=== PATIENT | male | born 1985 | race African-American/Black ===

== ENCOUNTER 2016-11-28 15:54 | Emergency (ER) | payer MEDICAID ==
[~2016-11-28] VITALS: Ht 175.3 cm; Wt 93.0 kg
[2016-11-28 16:54] VITALS: BP 133/79
[2016-11-28] MEDS ORDERED: Metoclopramide 10mg/2ml Inj IVP ONE (17:15)
[2016-11-28 17:52] LABS: BASOPHILS % (AUTO) 1.7 % (0.0-2.0); EOSINOPHILS % (AUTO) 2.4 % (0.0-3.0); LYMPHOCYTES % (AUTO) 38.4 % (20.0-45.0); MEAN CORPUSCULAR HEMOGLOBIN 25.8 PG (27.0-31.0); MEAN CORPUSCULAR VOLUME 81 FL (80-99); MEAN PLATELET VOLUME 6.7 FL (6.5-10.1); MONOCYTES % (AUTO) 5.2 % (1.0-10.0); NEUTROPHILS % (AUTO) 52.3 % (45.0-75.0); PLATELET COUNT 251 K/UL (150-450); RED BLOOD COUNT 5.52 M/UL (4.70-6.10); RED CELL DISTRIBUTION WIDTH 13.3 % (11.6-14.8)
[2016-11-28 18:08] LABS: ALANINE AMINOTRANSFERASE 35 U/L (3-41); ALBUMIN/GLOBULIN RATIO 1.3 (1.0-2.7); ANION GAP 15 (5-15); ASPARTATE AMINO TRANSFERASE 24 U/L (5-40); CALCIUM 9.2 mg/dL (8.6-10.2); CARBON DIOXIDE 24 mEQ/L (20-30); CHLORIDE 100 mEQ/L (98-107); CREATININE 1.1 mg/dL (0.7-1.2); GLOMERULAR FILTRATION RATE > 60 mL/min (>60); HEMOLYSIS 24; LIPASE 16 U/L (< 60); POTASSIUM 4.2 mEQ/L (3.4-4.9); SODIUM 139 mEQ/L (135-145); TOTAL PROTEIN 7.6 g/dL (6.6-8.7)
[2016-11-28 18:24] VITALS: BP 126/72
[2016-11-28 18:29] LABS: APPEARANCE,URINE CLEAR; KETONES,URINE NEGATIVE (NEGATIVE); LEUKOCYTE ESTERASE ,URINE NEGATIVE (NEGATIVE); NITRITE,URINE NEGATIVE (NEGATIVE); PH,URINE 7 (4.5-8.0); PROTEIN,URINE NEGATIVE (NEGATIVE); UROBILINOGEN,URINE 1 MG/DL (0.0-1.0)
--- NOTE | 2016-11-29 00:26 | Emergency Room Report ---
History of Present Illness General Chief Complaint: Abdominal Pain Source: Patient Present Illness HPI Patient is a 31-year-old male who presented for generalized abdominal pain and the muscle cramps. Patient had gradual onset of symptoms. Patient reported having generalized muscle aches and body aches. He denied any fever. He had not been vomiting intermittently as well as having gradual headaches. The patient said he had prior CT imaging after a head injury and had been having intermittent headaches for several weeks. Patient denies any fever he denied any hematemesis or bloody stools. Allergies: Coded Allergies: No Known Allergies (Unverified , 11/28/16) Patient History Past Medical History: see triage record Reviewed Nursing Documentation: PMH: Agreed, PSxH: Agreed Review of Systems All Other Systems: negative except mentioned in HPI Physical Exam Vital Signs Date Time Temp Pulse Resp B/P Pulse Ox O2 Delivery O2 Flow Rate FiO2 11/28/16 16:41 98.1 87 17 143/80 98 Room Air Sp02 EP Interpretation: reviewed, normal General Appearance: normal inspection, well appearing, no apparent distress, alert, GCS 15 Head: atraumatic ENT: normal ENT inspection, hearing grossly normal, normal voice Neck: normal inspection, full range of motion, supple, no bony tend Respiratory: normal inspection, lungs clear, normal breath sounds, no respiratory distress, no retraction, no wheezing Cardiovascular #1: regular rate, rhythm, no edema Gastrointestinal: normal inspection, normal bowel sounds, non tender, soft, no guarding, no hernia Genitourinary: no CVA tenderness Musculoskeletal: normal inspection, back normal, normal range of motion Neurologic: normal inspection, alert, oriented x3, responsive, paint maker III-XII nml as tested, speech normal Psychiatric: normal inspection, judgement/insight normal, mood/affect normal Skin: normal inspection, normal color, no rash Medical Decision Making Diagnostic Impression: Primary Impression: Abdominal pain ER Course Patient presented for abdominal pain. Differential diagnoses included ischemic bowel, appendicitis, perforated viscus, abdominal aortic aneurysm, inferior myocardial infarction, viral gastroenteritis Because of complexity of patient's case laboratory testing and imaging studies were ordered. The patient was given IV antiemetics and IV fluids. the patient said he felt better want to go home. The patient is given a note for work. Laboratory Tests Test 11/28/16 17:27 White Blood Count 6.0 K/UL (4.8-10.8) Red Blood Count 5.52 M/UL (4.70-6.10) Hemoglobin 14.3 G/DL (14.2-18.0) Hematocrit 44.6 % (42.0-52.0) Mean Corpuscular Volume 81 FL (80-99) Mean Corpuscular Hemoglobin 25.8 PG (27.0-31.0) L Mean Corpuscular Hemoglobin Concent 32.0 G/DL (32.0-36.0) Red Cell Distribution Width 13.3 % (11.6-14.8) Platelet Count 251 K/UL (150-450) Mean Platelet Volume 6.7 FL (6.5-10.1) Neutrophils (%) (Auto) 52.3 % (45.0-75.0) Lymphocytes (%) (Auto) 38.4 % (20.0-45.0) Monocytes (%) (Auto) 5.2 % (1.0-10.0) Eosinophils (%) (Auto) 2.4 % (0.0-3.0) Basophils (%) (Auto) 1.7 % (0.0-2.0) Urine Color Yellow Urine Appearance Clear Urine pH 7 (4.5-8.0) Urine Specific [place] 1.010 (1.005-1.035) Urine Protein Negative (NEGATIVE) Urine Glucose (UA) Negative (NEGATIVE) Urine Ketones Negative (NEGATIVE) Urine Occult Blood Negative (NEGATIVE) Urine Nitrite Negative (NEGATIVE) Urine Bilirubin Negative (NEGATIVE) Urine Urobilinogen 1 MG/DL (0.0-1.0) H Urine Leukocyte Esterase Negative (NEGATIVE) Sodium Level 139 mEQ/L (135-145) Potassium Level 4.2 mEQ/L (3.4-4.9) Chloride Level 100 mEQ/L (98-107) Carbon Dioxide Level 24 mEQ/L (20-30) Anion Gap 15 (5-15) Blood Urea Nitrogen 12 mg/dL (7-23) Creatinine 1.1 mg/dL (0.7-1.2) Estimate Glomerular Filtration Rate > 60 mL/min (>60) Glucose Level 98 mg/dL (74-106) Calcium Level 9.2 mg/dL (8.6-10.2) Total Bilirubin 0.5 mg/dL (0.0-1.2) Aspartate Amino Transferase (AST) 24 U/L (5-40) Alanine Aminotransferase (ALT) 35 U/L (3-41) Alkaline Phosphatase 83 U/L (40-129) Total Protein 7.6 g/dL (6.6-8.7) Albumin 4.3 g/dL (3.5-5.2) Globulin 3.3 g/dL Albumin/Globulin Ratio 1.3 (1.0-2.7) Lipase 16 U/L (< 60) Last Vital Signs Date Time Temp Pulse Resp B/P Pulse Ox O2 Delivery O2 Flow Rate FiO2 11/28/16 18:24 98.6 76 18 126/72 98 Room Air Status: improved Disposition: HOME, SELF-CARE Condition: Stable Referrals: BAKARI VEGA,REFERRING (PCP) Patient Instructions: Abdominal Pain, Adult Additional Instructions: Medically cleared to return to work Chuck Strong Nov 29, 2016 00:26
== END 2016-11-28 18:24 | disposition home or self-care (01) ==
LOC: EMR 18:14
DX: R10.84 Generalized abdominal pain (principal)
CPT/HCPCS: 36415; 80053; 81003; 83690; 85025; 96374; 99284; J2765

== ENCOUNTER 2017-04-16 13:03 | Emergency (ER) | payer MEDICAID ==
[~2017-04-16] VITALS: Ht 180.3 cm; Wt 87.5 kg
[2017-04-16] MEDS ORDERED: TESSALON PERLE100 MG ORAL (13:38)
[2017-04-16 13:41] VITALS: BP 151/88
--- NOTE | 2017-04-16 18:58 | Emergency Room Report ---
History of Present Illness General Chief Complaint: General Complaint Source: Patient Present Illness [facility] The patient is a 32-year-old male presenting for sore throat, subjective fevers , nasal congestion, eye redness, and dry cough for the past week. He states that symptoms have improved significantly and needs a note to return to work. He denies any known sick contacts recent travel. He denies recent fever or chills. Denies any other symptoms including N, V, neck pain/stiffness, ANDRES, SOB , abd pain Allergies: Coded Allergies: No Known Allergies (Unverified , 11/28/16) Patient History Past Medical History: see triage record Pertinent Family History: none Reviewed Nursing Documentation: PMH: Agreed, PSxH: Agreed Nursing Documentation-PMH Past Medical History: No Stated History Review of Systems All Other Systems: negative except mentioned in HPI Physical Exam Vital Signs Date Time Temp Pulse Resp B/P Pulse Ox O2 Delivery O2 Flow Rate FiO2 04/16/17 13:12 98.4 85 18 151/88 98 Room Air Sp02 EP Interpretation: reviewed, normal General Appearance: no apparent distress, alert, GCS 15, non-toxic Head: normocephalic, atraumatic Eyes: bilateral eye PERRL, bilateral eye normal inspection ENT: hearing grossly normal, no angioedema, normal voice, uvula midline, nasal congestion, pharyngeal erythema Neck: full range of motion, supple/symm/no masses Respiratory: chest non-tender, lungs clear, normal breath sounds, no wheezing, speaking full sentences Cardiovascular #1: regular rate, rhythm, no edema Gastrointestinal: normal bowel sounds, non tender, soft, non-distended, no guarding, no rebound Musculoskeletal: back normal, gait/station normal, normal range of motion, non- tender Neurologic: alert, oriented x3, responsive, motor strength/tone normal, sensory intact, speech normal Psychiatric: judgement/insight normal, memory normal, mood/affect normal, no suicidal/homicidal ideation Skin: normal color, no rash, warm/dry, well hydrated Lymphatic: no adenopathy Medical Decision Making PA Attestation Dr. Ochoa is my supervising physician. Patient management was discussed with my supervising physician Diagnostic Impression: Primary Impression: Pharyngitis, acute Qualified Codes: J02.9 - Acute pharyngitis, unspecified ER Course The patient is a 32-year-old male presenting for sore throat, subjective fevers , nasal congestion, eye redness, and dry cough Differential diagnosis include but not limited to pharyngitis, sinusitis, AOM, bronchitis, PNA Physical exam: Vitals within normal limits. Afebrile. No apparent distress HEENT exam: There is bilateral tonsillar erythema. No exudate or edema. Uvula midline. Moist mucous membranes. No cervical lymphadenopathy. Lungs are clear to auscultation bilaterally Skin is warm and dry. No rash This is most likely viral in symptoms are resolving. Patient is given a return to work note. He is given a prescription for cough medication and will FU with PMD. ER precautions given Last Vital Signs Date Time Temp Pulse Resp B/P Pulse Ox O2 Delivery O2 Flow Rate FiO2 04/16/17 13:41 98.4 18 151/88 98 Room Air 04/16/17 13:12 85 Status: improved Disposition: HOME, SELF-CARE Condition: Improved Scripts Benzonatate* (TESSALON PERLEsther*) 100 Mg Capsule 100 MG ORAL THREE TIMES A DAY, #15 PERLE Prov: MALDONADO REECE 04/16/17 Referrals: CASSI GRADY,REFERRING (PCP) Departure Forms: Return to Work Return to Work Date: Apr 16, 2017 Work Restrictions: None Return to Full Activity: Apr 16, 2017 Patient Instructions: Pharyngitis Additional Instructions: I discussed my findings with the patient. All questions and concerns have been answered. Treatment and medication compliance have been addressed. I advised the patient that they need to follow up with PMD in 3-5 days. Return to ED if pain remains or worsens, cough worsens or remains, you notice blood in your sputum, you notice wheezing, you experience a fever, or if needed for any reason. Patient verbalized understanding of discharge instructions. MALDONADO REECE Apr 16, 2017 18:58
== END 2017-04-16 13:41 | disposition home or self-care (01) ==
LOC: EMR 13:30
DX: J02.9 Acute pharyngitis, unspecified (principal); R05 Cough
CPT/HCPCS: 99284

== ENCOUNTER 2017-06-28 23:19 | Emergency (ER) | payer MEDICAID ==
[~2017-06-28] VITALS: Ht 177.8 cm; Wt 83.5 kg
[~2017-06-28 23:19] MED LIST: TESSALON PERLE100 MG ORAL
[2017-06-28 23:30] VITALS: BP 136/87
--- NOTE | 2017-06-28 23:51 | Emergency Room Report ---
History of Present Illness General Chief Complaint: Upper Respiratory Illness Source: Patient Present Illness HPI Patient presents with upper respiratory symptoms and sore throat. He also has headache and fullness in the sinuses. The also has a cough. His coworker is sick. He has some chest pain with coughing 10, pleuritic, somewhat sharp and aching, not radiating. No NVD, dysuria, rashes. 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 Reviewed Nursing Documentation: PMH: Agreed, PSxH: Agreed Nursing Documentation-PMH Past Medical History: No Stated History Review of Systems All Other Systems: negative except mentioned in HPI Physical Exam Vital Signs Date Time Temp Pulse Resp B/P Pulse Ox O2 Delivery O2 Flow Rate FiO2 06/28/17 23:22 97.9 98 16 136/87 98 Room Air Sp02 EP Interpretation: reviewed, normal General Appearance: well appearing, no apparent distress Head: normocephalic, atraumatic Eyes: bilateral eye normal inspection ENT: tonsillar swelling, pharyngeal erythema Neck: full range of motion, supple Respiratory: lungs clear, normal breath sounds, no respiratory distress, speaking full sentences Cardiovascular #1: regular rate, rhythm Cardiovascular #2: 2+ radial (R) Gastrointestinal: normal inspection Musculoskeletal: digits/nails normal, gait/station normal, normal range of motion Neurologic: alert, oriented x3, normal gait, grossly normal Psychiatric: mood/affect normal Skin: no rash Medical Decision Making Diagnostic Impression: Primary Impression: Upper respiratory infection Qualified Codes: J06.9 - Acute upper respiratory infection, unspecified ER Course Patient with URI, sinus pain and sore throat. Ddx: strep, viral, sinusitis. No wheezing. Overall sy suggestive of viral process with some sinus congestion. Will treat symptoms. Exam against pneumonia. Patient stable for outpatient observation and treatment. Last Vital Signs Date Time Temp Pulse Resp B/P Pulse Ox O2 Delivery O2 Flow Rate FiO2 06/29/17 00:06 97.9 16 136/87 98 Room Air 06/28/17 23:30 98 Status: improved Disposition: HOME, SELF-CARE Condition: Improved Scripts Ibuprofen* (MOTRIN*) 600 Mg Tablet 600 MG ORAL Q6H Y for For Pain, #16 TAB Prov: Jay Talley M.D. 06/28/17 Chlorpheniramine Maleate (CHLOR-TRIMETON) 4 Mg Tablet 4 MG PO Q6HR Y for congestion, #10 TAB Prov: Jay Talley M.D. 06/28/17 Codeine/Promethazine Hcl* (PROMETHAZINE-CODEINE SYRUP*) 118 Ml Syrup 5 ML ORAL Q6H Y for For Cough, #60 ML 0 Refills Prov: Jay Talley M.D. 06/28/17 Jay Talley M.D. Jun 28, 2017 23:51
[2017-06-28] MEDS ORDERED: PROMETHAZINE-C118 M1 ORAL (23:54)
[2017-06-28] MEDS ORDERED: IBUPROFEN600 MG ORAL (23:54)
[2017-06-28] MEDS ORDERED: CHLOR-TRIMETON4 MG PO (23:54)
[2017-06-29 00:06] VITALS: BP 136/87
== END 2017-06-29 00:06 | disposition home or self-care (01) ==
LOC: EMR 23:48
DX: J06.9 Acute upper respiratory infection, unspecified (principal); F17.200 Nicotine dependence, unspecified, uncomplicated; R51 Headache
CPT/HCPCS: 99284

== ENCOUNTER 2017-10-22 20:23 | Emergency (ER) | payer MEDICAID ==
[~2017-10-22] VITALS: Ht 175.3 cm; Wt 83.9 kg
[~2017-10-22 20:23] MED LIST changes: +CHLOR-TRIMETON4 MG PO; +IBUPROFEN600 MG ORAL; +PROMETHAZINE-C118 M1 ORAL
[2017-10-22] MEDS ORDERED: NKM (20:34)
[2017-10-22] MEDS ORDERED: IBUPROFEN800 MG ORAL (20:48)
[2017-10-22 20:50] VITALS: BP 137/83
[2017-10-22 20:53] VITALS: BP 137/83
--- NOTE | 2017-11-15 14:26 | Emergency Room Report ---
History of Present Illness General Chief Complaint: Upper Respiratory Illness Source: Patient Present Illness HPI 32-year-old male with 2-3 days of upper respiratory symptoms including cough, headache, sore throat. Denies fever or chills. Denies chest pain or shortness of breath. Denies asthma or COPD or other medical problems. Has not taken any home medications. Allergies: Coded Allergies: No Known Allergies (Unverified , 11/28/16) Patient History Past Medical History: none Past Surgical History: none Pertinent Family History: none Social History: Denies: smoking, alcohol use, drug use Immunizations: UTD Reviewed Nursing Documentation: PMH: Agreed, PSxH: Agreed Nursing Documentation-PMH Past Medical History: No Stated History Review of Systems All Other Systems: negative except mentioned in HPI Physical Exam Vital Signs Date Time Temp Pulse Resp B/P (MAP) Pulse Ox O2 Delivery O2 Flow Rate FiO2 10/22/17 20:30 97.9 83 16 135/93 100 10/22/17 20:50 Room Air Sp02 EP Interpretation: reviewed, normal General Appearance: normal inspection, well appearing, no apparent distress, alert, GCS 15, non-toxic Head: normocephalic, atraumatic Eyes: bilateral eye PERRL, bilateral eye EOMI ENT: normal ENT inspection, hearing grossly normal, normal pharynx, no angioedema, normal voice, TMs + canals normal, uvula midline, moist mucus membranes Neck: normal inspection, full range of motion, supple, thyroid normal, no meningismus, no bony tend Respiratory: normal inspection, lungs clear, normal breath sounds, no rhonchi, no respiratory distress, no retraction, no accessory muscle use, no wheezing, speaking full sentences Cardiovascular #1: regular rate, rhythm, no edema, no JVD, normal capillary refill Gastrointestinal: normal inspection, normal bowel sounds, non tender, soft, no mass, no peritonitis, non-distended, no guarding, no hernia, no pulsatile mass Genitourinary: no CVA tenderness Musculoskeletal: normal inspection, back normal, normal range of motion, no calf tenderness, pelvis stable, Niraj's Sign negative Neurologic: normal inspection, alert, oriented x3, responsive, 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 No sign of acute bacterial infection on exam. Not septic appearing. Very well-appearing. Recommended ibuprofen and supportive treatment as needed Alise course: Patient has remained stable during ED stay. Disposition: Patient is to be discharged to home. Prescriptions given are ibuprofen Patient is instructed to follow up with their primary care doctor within 5 days. Strict return precautions discussed with patient such as fever, chills, worsening/severe pain, nausea, vomiting, which may indicate severe illness. Patient verbalizes understanding and agrees with plan. Please note that this Emergency Department Report was dictated using [employer] care marketing specialist technology software, occasionally this can lead to erroneous entry secondary to interpretation by the dictation equipment Last Vital Signs Date Time Temp Pulse Resp B/P (MAP) Pulse Ox O2 Delivery O2 Flow Rate FiO2 10/22/17 20:53 82 18 137/83 99 10/22/17 20:51 Room Air 10/22/17 20:30 97.9 Status: improved Disposition: HOME, SELF-CARE Condition: Improved Scripts Ibuprofen* (MOTRIN*) 800 Mg Tablet 800 MG ORAL THREE TIMES A DAY for 7 Days, #30 TAB 0 Refills Prov: JUSTINO RAZO M.D. 10/22/17 Referrals: [facility],REFERRING (PCP) Patient Instructions: Upper Respiratory Infection, Adult Additional Instructions: - use neti pot in shower to clear secretions from nose - Take ibuprofen up to 3x a day for sore throat - Use throat lozenges [place] for comfort - Sleep, drink lots of fluids JUSTINO RAZO M.D. Nov 15, 2017 14:26
== END 2017-10-22 21:00 | disposition home or self-care (01) ==
LOC: EMR 20:57
DX: J06.9 Acute upper respiratory infection, unspecified (principal)
CPT/HCPCS: 99283

== ENCOUNTER 2017-10-26 19:04 | Emergency (ER) | payer MEDICAID ==
[~2017-10-26] VITALS: Ht 175.3 cm; Wt 83.9 kg
[~2017-10-26 19:04] MED LIST changes: +IBUPROFEN800 MG ORAL; +NKM
[2017-10-26 20:28] VITALS: BP 146/88
[2017-10-26] MEDS ORDERED: NORCO 5-325 TA1 EAC1 ORAL (20:28)
[2017-10-26 20:33] VITALS: BP 146/88
--- NOTE | 2017-10-26 21:24 | Emergency Room Report ---
History of Present Illness General Chief Complaint: Pain Source: Patient Present Illness HPI The patient is a 32-year-old male presenting for right knee pain. He states that he had a right knee patellar tendon rupture years prior and had surgical fixation. He denies any complications from this. He states that he was able to walk normally and then the knee well there for 3 days prior when he felt pain to the right knee. He states that he has been dancing recently but denies any known injury to the knee. Pain is an 8/10 dull ache and does not radiate. Worse with movement and touch. He states that he feels like his right knee locks up when he bends it now. He denies any other symptoms including fever, chills, calf Pain, shortness of breath Allergies: Coded Allergies: No Known Allergies (Unverified , 11/28/16) Patient History Past Medical History: see triage record Pertinent Family History: none Reviewed Nursing Documentation: PMH: Agreed, PSxH: Agreed Review of Systems All Other Systems: negative except mentioned in HPI Physical Exam Vital Signs Date Time Temp Pulse Resp B/P (MAP) Pulse Ox O2 Delivery O2 Flow Rate FiO2 10/26/17 19:10 98.1 91 18 146/88 95 Room Air Sp02 EP Interpretation: reviewed, normal General Appearance: no apparent distress, alert, GCS 15, non-toxic Head: normocephalic, atraumatic Eyes: bilateral eye normal inspection, bilateral eye PERRL ENT: hearing grossly normal, normal pharynx, no angioedema, normal voice Musculoskeletal: back normal, gait/station normal, decreased range of motion - R knee, other - R knee surgical scar, tender - R anterior knee Neurologic: alert, oriented x3, responsive, motor strength/tone normal, sensory intact, speech normal Psychiatric: judgement/insight normal, memory normal, mood/affect normal, no suicidal/homicidal ideation Skin: normal color, no rash, warm/dry, well hydrated Medical Decision Making PA Attestation Dr. Strong is my supervising physician. Patient management was discussed with my supervising physician Diagnostic Impression: Primary Impression: Rupture patellar tendon Qualified Codes: S86.811A - Strain of other muscle(s) and tendon(s) at lower leg level, right leg, initial encounter ER Course The patient is a 32-year-old male presenting for right knee pain. Ddx considered include but not limited to sprain/strain, gout, tendon rupture, cellulitis, septic joint, fracture, contusion PE: Afebrile. NAD Right knee: There is a midline surgical scar. No erythema. Skin warm and dry. Unable to flex. Tender to palpation over anterior aspect. No laxity. Right knee x-ray shows high riding patella. The patient has a right knee immobilizer on already. He is given crutches and will followup with his orthopedic surgeon as soon as possible. He is discharged home with pain medication Other X-Ray Diagnostic Results Other X-Ray Diagnostic Results : X-Ray ordered: R knee # of Views/Limited Vs Complete: 3 View Indication: Pain EP Interpretation: Yes PA Xray: Interpretation reviewed, by supervising MD, and agrees with findings. Interpretation: no dislocation, no soft tissue swelling, no fractures, nonspecific bowel gas, other - high riding patella Impression: Other - high riding patella Electronically Signed by: Arnel Reece PA-C Last Vital Signs Date Time Temp Pulse Resp B/P (MAP) Pulse Ox O2 Delivery O2 Flow Rate FiO2 10/26/17 20:33 98.1 91 18 146/88 95 Room Air Status: improved Disposition: HOME, SELF-CARE Condition: Improved Scripts Hydrocodone Bit/Acetaminophen 5-325* (NORCO 5-325 TABLET*) 1 Each Tablet 1 TAB ORAL Q6HR Y for For Pain, #12 TAB Prov: ARNEL REECE 10/26/17 Patient Instructions: Knee Pain Additional Instructions: I discussed my findings with the patient. All questions and concerns have been answered. Treatment and medication compliance have been addressed. Return to ED if pain remains or worsens, numbness or tingling occurs, new rash is noticed, fever is noticed, or if needed for any reason. Patient verbalized understanding of discharge instructions. Please followup with your orthopedic surgeon as soon as possible ARNEL REECE Oct 26, 2017 21:24
--- NOTE | 2017-10-27 11:57 | Diagnostic Imaging Report ---
Indication: Pain. Postop 3 weeks ago Technique: XRAY Knee 3v R Comparison: None Findings: Leg is held in extension on lateral view. The patella is high in location. Soft tissue prominence anterior to the knee There is no acute fracture or dislocation. No radiopaque foreign body seen. There is no large suprapatellar joint effusion. Impression: Abnormal high location of the patella with soft tissue prominence anterior to the knee. These findings are concerning for patellar tendon rupture. No acute fracture. This corresponds with the primary impression of the treating ER physician documented in the electronic medical record.
== END 2017-10-26 20:33 | disposition home or self-care (01) ==
LOC: EMR 19:43
DX: S76.111A Strain of right quadriceps muscle, fascia and tendon, initial encounter (principal); X58.XXXA Exposure to other specified factors, initial encounter; Y92.9 Unspecified place or not applicable; Z98.890 Other specified postprocedural states
CPT/HCPCS: 99283

== ENCOUNTER 2018-08-25 15:13 | Emergency (ER) | payer MEDICAID ==
[~2018-08-25] VITALS: Ht 177.8 cm; Wt 86.2 kg
[~2018-08-25 15:13] MED LIST changes: +NORCO 5-325 TA1 EAC1 ORAL
[2018-08-25 15:19] VITALS: BP 120/91
--- NOTE | 2018-08-25 16:28 | Emergency Room Report ---
History of Present Illness General Chief Complaint: General Complaint Source: Patient, Medical Record Present Illness HPI 33-year-old male presents to the emergency department with multiple complaints. He reports 8/10 in severity right wrist pain 2 weeks, right knee pain times one and a half weeks and sore throat 1 week. Patient denies appreciable trauma or fall he denies fevers, chills, cough, as neck pain or stiffness or other URI symptoms. 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 He reports paresthesia intermittently in the lateral aspect of the right 5th digit. He denies loss of sensation or gross motor movements of the extremities, incontinence of bowel or bladder. Denies CP, Palpitations, LOC, AMS , dizziness, Changes in Vision, weakness or a sudden severe headache. Pt reports something "hanging" off of his throat and causing him to gag every now and then. Denies neck pain or stiffness, denies fevers or difficulty swallowing. Allergies: Coded Allergies: No Known Allergies (Unverified , 11/28/16) Patient History Past Medical History: see triage record Past Surgical History: none Pertinent Family History: none Reviewed Nursing Documentation: PMH: Agreed; PSxH: Agreed Nursing Documentation-PMH Past Medical History: No History, Except For Hx Cardiac Problems: No - RT KNEE SURGERY 2009 Review of Systems All Other Systems: negative except mentioned in HPI Physical Exam Vital Signs Date Time Temp Pulse Resp B/P (MAP) Pulse Ox O2 Delivery O2 Flow Rate FiO2 08/25/18 15:17 98.4 85 18 120/91 97 Room Air 98.4 Sp02 EP Interpretation: reviewed, normal General Appearance: no apparent distress, alert, GCS 15, non-toxic Head: normocephalic, atraumatic Eyes: bilateral eye normal inspection, bilateral eye PERRL ENT: hearing grossly normal, normal voice, TMs + canals normal, uvula midline - uvula is very elongated and sits on posterior tongue. , other - no evidence of bacterial infection of the throat, no evidence of impending airway compromise. uvula is very elongated and sits on posterior tongue. Neck: full range of motion, no meningismus, no bony tend Respiratory: lungs clear, normal breath sounds, speaking full sentences Cardiovascular #1: regular rate, rhythm, normal capillary refill Musculoskeletal: back normal, gait/station normal, normal range of motion, non- tender, tender - anterior right knee, no increased laxity. surgical scar present mild swelling noted. TTP to the lateral-volar aspect of the right wrist , positive tinnel's sign negative phalen's. NVI Neurologic: alert, oriented x3, responsive, motor strength/tone normal, sensory intact, normal gait, speech normal, grossly normal Psychiatric: judgement/insight normal Skin: normal color, no rash, warm/dry, well hydrated Medical Decision Making PA Attestation Dr. Madrid is my supervising Physician whom patient management has been discussed with. Diagnostic Impression: Primary Impression: Right wrist sprain Qualified Codes: S63.501A - Unspecified sprain of right wrist, initial encounter Additional Impression: Knee pain, right Qualified Codes: M25.561 - Pain in right knee ER Course 33-year-old male presents to the emergency department with multiple complaints. He reports 8/10 in severity right wrist pain 2 weeks, right knee pain times one and a half weeks and sore throat 1 week. Patient denies appreciable trauma or fall he denies fevers, chills, cough, as neck pain or stiffness or other URI symptoms. 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 He reports paresthesia intermittently in the lateral aspect of the right 5th digit. He denies loss of sensation or gross motor movements of the extremities, incontinence of bowel or bladder. Denies CP, Palpitations, LOC, AMS , dizziness, Changes in Vision, weakness or a sudden severe headache. Pt reports something "hanging" off of his throat and causing him to gag every now and then. Denies neck pain or stiffness, denies fevers or difficulty swallowing. Ddx considered but are not limited to Fracture, dislocation, contusion, Sprain/ Strain/Spasm, pharyngitis, strep, CREATIVE ASSISTANT, ludwigs angina, URI Vital signs: are WNL, pt. is afebrile H&PE are most consistent with musculoskeletal injury will perform imaging to r/ o fractures/dislocations. no evidence of bacterial infection of the throat, no evidence of impending airway compromise. uvula is very elongated and sits on posterior tongue. Pt. is not in acute distress, non-toxic in appearance. ORDERS: - X-rays of the right knee and wrist - negative for fx, Dislocation, or significant soft tissue injury, per preliminary read in ED, and signed by HARRY Milan, my supervising physician has reviewed, and agrees with my interpretation. ED INTERVENTIONS: - Motrin 600mg PO - right wrist Colles Splint applied by delivery tech. Pt. remains neurovascularly intact. -Marvin wrap applied to the right knee by delivery tech. Pt. remains neurovascularly intact. DISCHARGE: At this time pt. is stable for d/c to home. Will provide printed patient care instructions, and any necessary prescriptions. Care plan and follow up instructions have been discussed with the patient prior to discharge. Other X-Ray Diagnostic Results Other X-Ray Diagnostic Results #1: X-Ray ordered: Right wrist # of Views/Limited Vs Complete: 3 View Indication: Pain EP Interpretation: Yes PA Xray: Interpretation reviewed, by supervising MD, and agrees with findings. Interpretation: no dislocation, no soft tissue swelling, no fractures Impression: No acute disease Electronically Signed by: Beba Milan PA-C Other X-Ray Diagnostic Results #2: X-Ray ordered: right knee # of Views/Limited Vs Complete: 3 View Indication: Pain EP Interpretation: Yes PA Xray: Interpretation reviewed, by supervising MD, and agrees with findings. Interpretation: no dislocation, no soft tissue swelling, no fractures, other - old tibial abnormality, seen on prevoius exam without change in appearance. Impression: No acute disease Last Vital Signs Date Time Temp Pulse Resp B/P (MAP) Pulse Ox O2 Delivery O2 Flow Rate FiO2 08/25/18 15:19 98.4 85 18 120/91 97 Room Air 98.4 Disposition: HOME, SELF-CARE Condition: Stable Scripts Ibuprofen* (MOTRIN*) 600 Mg Tablet 600 MG ORAL THREE TIMES A DAY, #30 TAB 0 Refills Prov: Beba Milan 08/25/18 Departure Forms: Return to Work Return to Work Date: Aug 26, 2018 Work Restrictions: No Heavy Lifting Other Restrictions: limited use of the right wrist, wear splint. Return to Full Activity: Sep 02, 2018 Patient Instructions: Carpal Tunnel Syndrome, [id number], Knee Pain, Easy-to- Read, Wrist Sprain Additional Instructions: Take medications as directed. Follow up with an [facility] in 3-5 days, even if your symptoms have resolved. If symptoms persist MRI may be required at the discretion of your PCP or Ortho Specialist. --Please review list of primary care clinics, if you do not already have a primary care provider who can give you an Orthopedic Referral. Return sooner to ED if new symptoms occur, or current symptoms become worse. - Please note that this Emergency Department Report was dictated using [employer] was[employer] technology software, occasionally this can lead to erroneous entry secondary to interpretation by the dictation equipment. Beba Milan Aug 25, 2018 16:28
[2018-08-25] MEDS ORDERED: IBUPROFEN600 MG ORAL (16:29)
[2018-08-25 16:36] VITALS: BP 120/91
--- NOTE | 2018-08-26 10:46 | Diagnostic Imaging Report ---
Indication: Right wrist pain Findings: 3 views of the right wrist were obtained. No acute fractures, malalignment, erosions or periostitis are identified. Soft tissues are unremarkable. Impression: No acute findings.
--- NOTE | 2018-08-26 16:19 | Diagnostic Imaging Report ---
Indication: Pain Knee pain/trauma 3 views of the right knee were obtained. Findings: No acute fracture, malalignment, or joint effusion are identified. There is moderate anterior soft tissue swelling present. The bones are osteopenic. Joint space is mildly narrowed. Impression: Negative for acute findings.
== END 2018-08-25 16:45 | disposition home or self-care (01) ==
LOC: EMR 16:38
DX: S63.501A Unspecified sprain of right wrist, initial encounter (principal); X50.3XXA Overexertion from repetitive movements, initial encounter; Y92.9 Unspecified place or not applicable; M25.561 Pain in right knee
CPT/HCPCS: 99283

== ENCOUNTER 2019-01-13 13:15 | Emergency (ER) | payer MEDICAID ==
[~2019-01-13] VITALS: Ht 177.8 cm; Wt 93.0 kg
--- NOTE | 2019-01-13 13:15 | NUR ---
ED Nurse Note: pt states he has been having flu like sx since last sunday, cough, nasal congestion, runny nose, and sorethroat but denies fever/sob/vasquez. pt AA&ox4, gcs=15, skin warm and dry, resp even and unlabored on RA, -n/v/d, ambulates w/ steady gait, noted nasal congestion and dry cough. VSS, will cont monitor.
[2019-01-13 13:34] VITALS: BP 145/83
--- NOTE | 2019-01-13 13:53 | NUR ---
ED Nurse Note: Pt cleared by health care Provider for discharge. DC instructions/prescription was given and explained to pt and verbalized understanding of teachings. All medical deviecs such as ID band removed. Pt is AAO x4, ambulatory and left with all personal belongings.
--- NOTE | 2019-01-13 14:11 | Emergency Room Report ---
History of Present Illness General Chief Complaint: Upper Respiratory Illness Source: Patient Present Illness HPI Patient has had cough sore throat and ear pain since Sunday. The cough is not keeping him awake at night. He is coughing up yellow phlegm with some streaks of blood. He denies muscle aches. He did not get a flu shot last year. He has some congestion in addition. This fullness in his ears. The patient does smoke. The pain in his throat is rated 6/10 burning. It is worse when he swallows. He has been taking NyQuil and DayQuil. It has been helping. He denies wheezing. He has some chronic right knee pain post surgical repair. This is somewhat worsened with the recent infection. There is no warmth in the area or swelling. He is wearing a volar brace on his right wrist. He states he has carpal tunnel. No nausea, vomiting, diarrhea, dysuria, back pain, rashes. He has a mild headache. Allergies: Coded Allergies: No Known Allergies (Unverified , 11/28/16) Patient History Past Medical History: see triage record Past Surgical History: other - Right knee surgery Social History: Reports: smoking Social History Narrative Working Reviewed Nursing Documentation: PMH: Agreed; PSxH: Agreed Nursing Documentation-PMH Hx Cardiac Problems: No - RT KNEE SURGERY 2009 Hx Hypertension: Yes Review of Systems All Other Systems: negative except mentioned in HPI Physical Exam Vital Signs Date Time Temp Pulse Resp B/P (MAP) Pulse Ox O2 Delivery O2 Flow Rate FiO2 01/13/19 13:19 98.4 86 18 145/83 96 Room Air Sp02 EP Interpretation: reviewed, normal General Appearance: well appearing, no apparent distress, alert, GCS 15 Head: normocephalic, atraumatic ENT: normal voice, TMs + canals normal, pharyngeal erythema, tonsillar exudate Neck: full range of motion, supple, no meningismus Respiratory: chest non-tender, lungs clear, normal breath sounds, no respiratory distress, speaking full sentences Cardiovascular #1: regular rate, rhythm Cardiovascular #2: 2+ radial (L) Gastrointestinal: normal inspection, normal bowel sounds Musculoskeletal: digits/nails normal, gait/station normal, normal range of motion - With brace on the right wrist, no calf tenderness, other - Right knee with stable ligaments Neurologic: alert, oriented x3, normal gait, grossly normal Psychiatric: mood/affect normal Skin: no rash Medical Decision Making Diagnostic Impression: Primary Impression: Strep pharyngitis Additional Impression: Upper respiratory infection Qualified Codes: J06.9 - Acute upper respiratory infection, unspecified ER Course Patient presents with sore throat and cough since Sunday. Differential includes strep, viral, bronchospasm, upper respiratory infection amongst others. Exam is against otitis media. The patient's throat appears like a strep infection with exudates. Antibiotics are indicated. The patient is given antibiotics and also Motrin here. Discussed treatment plan with patient. Patient stable for outpatient observation and treatment. Last Vital Signs Date Time Temp Pulse Resp B/P (MAP) Pulse Ox O2 Delivery O2 Flow Rate FiO2 01/13/19 15:12 98.0 01/13/19 13:34 88 18 145/83 96 Room Air Status: improved Disposition: HOME, SELF-CARE Condition: Improved Scripts Ibuprofen* (MOTRIN*) 600 Mg Tablet 600 MG ORAL Q6H PRN for For Pain, #16 TAB Prov: Jay Talley MD 01/13/19 Chlorpheniramine Maleate (CHLOR-TRIMETON) 4 Mg Tablet 4 MG PO Q6HR, #14 TAB Prov: Jay Talley MD 01/13/19 Amoxicillin* (AMOXIL*) 500 Mg Capsule 500 MG ORAL THREE TIMES A DAY, #21 CAP Prov: Jay Talley MD 01/13/19 Jay Talley MD Jan 13, 2019 14:10
[2019-01-13] MEDS ORDERED: CHLOR-TRIMETON4 MG PO (14:13)
[2019-01-13] MEDS ORDERED: AMOXICILLIN500 MG ORAL (14:13)
[2019-01-13] MEDS ORDERED: IBUPROFEN600 MG ORAL (14:13)
== END 2019-01-13 14:00 | disposition home or self-care (01) ==
LOC: EMR 13:58
DX: J02.0 Streptococcal pharyngitis (principal); J06.9 Acute upper respiratory infection, unspecified; I10 Essential (primary) hypertension
CPT/HCPCS: 99282

== ENCOUNTER 2019-02-25 21:03 | Emergency (ER) | payer MEDICAID ==
[~2019-02-25] VITALS: Ht 175.3 cm; Wt 91.6 kg
[~2019-02-25 21:03] MED LIST changes: +AMOXICILLIN500 MG ORAL
--- NOTE | 2019-02-25 22:04 | Emergency Room Report ---
History of Present Illness General Chief Complaint: Upper Extremity Injury Source: Patient Present Illness HPI Patient is a 33-year-old male presented after increased right upper extremity swelling above his elbow. Patient reports a gradual onset of symptoms. He denies any recent trauma. He reports having increased rash. Reports having mild constant pain. He denies any other locations of injury. Allergies: Coded Allergies: No Known Allergies (Unverified , 11/28/16) Patient History Reviewed Nursing Documentation: PMH: Agreed; PSxH: Agreed Nursing Documentation-PMH Past Medical History: No History, Except For Hx Cardiac Problems: No - RT KNEE SURGERY 2010 Hx Hypertension: Yes Physical Exam Vital Signs Date Time Temp Pulse Resp B/P (MAP) Pulse Ox O2 Delivery O2 Flow Rate FiO2 02/25/19 21:50 99.1 77 16 128/87 97 Room Air General Appearance: well appearing, no apparent distress, alert, GCS 15 Head: normocephalic, atraumatic ENT: hearing grossly normal, normal voice Neck: full range of motion, supple Respiratory: no respiratory distress, speaking full sentences Musculoskeletal: normal inspection, no calf tenderness Neurologic: normal inspection, alert, oriented x3, responsive, normal gait Psychiatric: mood/affect normal Skin: other - right elbow swelling and redness, no fluctuance Medical Decision Making Diagnostic Impression: Primary Impression: Insect bite ER Course Patient presented for skin rash. Differential diagnosis include was not limited to abscess, insect bite, cellulitis among others. Patient has a benign exam and does not appear to require any further imaging or laboratory testing at this time. It appears to have a insect bite with secondary infection. Patient was given prescription for Keflex. He is advised to start topical hydrocortisone cream to prevent itching. Last Vital Signs Date Time Temp Pulse Resp B/P (MAP) Pulse Ox O2 Delivery O2 Flow Rate FiO2 02/25/19 21:50 99.1 77 16 128/87 97 Room Air Status: improved Disposition: HOME, SELF-CARE Condition: Stable Scripts Cephalexin* (KEFLEX*) 500 Mg Capsule 500 MG ORAL EVERY 6 HOURS, #28 CAP Prov: Chuck Strong MD 02/25/19 Hydrocortisone Acetate 1% Onit (HYDROCORTISONE 1% OINT) Y Oint 28 GM TP DAILY, #30 GM Prov: Chuck Strong MD 02/25/19 Chuck Strong MD Feb 25, 2019 22:04
--- NOTE | 2019-02-25 22:05 | NUR ---
ED Nurse Note: pt walked in c/o right posterior upper arm swelling and itchness, pt states he noticed two bug bite and started itching later noticed swelling, reports started today. Noted swelling posterior upper arm, will cont monitor. no open wound noted.
[2019-02-25 22:06] VITALS: BP 128/87
[2019-02-25] MEDS ORDERED: CEPHALEXIN500 MG ORAL (22:06)
[2019-02-25] MEDS ORDERED: HYDROCORTISONE28 G2 TP (22:06)
[2019-02-25 22:20] VITALS: BP 128/87
--- NOTE | 2019-02-25 22:20 | NUR ---
ED Nurse Note: pt cleared to be d/c per ER provider, pt discharge and aftercare instruction provided w/ prescription, pt education done via discussion and handout, pt advised to follow up with pcp or return to ed if sx worsen or new sx develop, pt verbalized understanding and agrees with plan, vss, ambulatory w/steady gait, left w/ all belongings.
== END 2019-02-25 22:20 | disposition home or self-care (01) ==
LOC: EMR 22:05
DX: S50.361A Insect bite (nonvenomous) of right elbow, initial encounter (principal); W57.XXXA Bitten or stung by nonvenomous insect and other nonvenomous arthropods, initial encounter; Y92.9 Unspecified place or not applicable; I10 Essential (primary) hypertension
CPT/HCPCS: 99282